=== PATIENT | male | born 2000 ===

== ENCOUNTER 2025-03-31 19:50 | Emergency (ER) | payer SELFPAY ==
[~2025-03-31] VITALS: Ht 188 cm; Wt 87.1 kg
[2025-03-31] MEDS ORDERED: EpiNEPhrine 1 MG/1 ML 1ML Vial IM ONE (20:00)
[2025-03-31] MEDS ORDERED: DiphenhydrAMINE HCl 50 MG/ML 1ML Vial IV ONE (20:05)
[2025-03-31] MEDS ORDERED: Dexamethasone Sod Phos 10 MG/ML 1ML VIAL IV ONE (20:05)
[2025-03-31] MEDS ORDERED: EPIPEN 2-P0.3 MG/0.1 IM (21:35)
== END 2025-03-31 21:49 | disposition home or self-care (01) ==
LOC: ER 19:50
DX: T78.40XA Allergy, unspecified, initial encounter (principal); Z91.018 Allergy to other foods
CPT/HCPCS: 96372; 96374; 96375; 99284-25; J0165; J1100; J1200